=== PATIENT | male | born 1965 | race Hispanic/Latino ===

== ENCOUNTER 2017-04-20 17:35 | Inpatient (IN) | payer MEDICARE ==
--- NOTE | 2017-04-20 17:43 | ED PDOC ---
Psych Transfer Clearance - Clearance Statement Clearance Statement: Reviewed vital signs, lab results and transfer papers. Patient clinically stable for psychiatric admission.
[2017-04-20 17:53] VITALS: O2SAT 100; BMI 30.7
[2017-04-20] MEDS ORDERED: DiphenhydrAMINE 50 mg/ml Inj IM PRN (18:32)
[2017-04-20] MEDS ORDERED: Alum-Mag Hydrox-Simethicone Susp (30 mL) PO PRN (18:32)
[2017-04-20] MEDS ORDERED: Magnesium Hydroxide Susp 30 ml UD PO PRN (18:32)
[2017-04-20] MEDS ORDERED: Pneumococcal 23-Valent Vaccine IM ONE (19:22)
--- NOTE | 2017-04-21 02:11 | PCM.BM ---
<Joce Santos - Last Filed: 04/21/17 02:09> Treatment Plan Problems - Problems identified on initial assessmt Agitated/Aggressive behavior Date Initiated: 04/20/17 Time Initiated: 19:45 Assessment reference: NA Status: Active Priority: 1 High Risk Violence Date Initiated: 04/20/17 Time Initiated: 19:45 Assessment reference: NA Status: Active Priority: 2 Ineffective Impulse Control Date Initiated: 04/20/17 Time Initiated: 19:45 Assessment reference: NA Status: Active Priority: 3 Treatment assets and liabiliti Patient Assests: cooperative, self-reliant, ADL independent, negotiates basic needs Patient Liabilities: live alone, financial problems, medical problems - Milieu Protocol Maintain good personal hygiene: daily Encourage regular showers, daily Remind patient to perform daily oral care, daily Assist patient to perform ADL's Maintain personal safety: every shift Educate patient to report safety concerns to staff, every shift Monitor environment for contraband/sharps Medication safety: Monitor for expected outcome, potential side effects: every shift, Assess barriers to learning: every shift, Assess readiness for medication education: every shift <MarquesJocelyn - Last Filed: 04/25/17 17:12> Treatment assets and liabiliti Patient Assests: adapts well, cooperative, insightful, self-reliant, ADL independent, negotiates basic needs, good past tx response Patient Liabilities: live alone, financial problems, poor support system, medical problems Family Contact Family involvement: Patient does not wish Family/SO involvement Family contact: Patient declines to allow family contact at present - Outside Agency Agency 1 Care involvment: Following patient during stay, Information-sharing, Other Agency contact name: [facility] contact number: Flow Trader spoke with RADHA (Nataliia [phone]) regarding patient progress on 3NP and aftercare. Flow Trader informed Nataliia that patient is agreeable to [facility] but only if referred to [facility]. Nataliia expressed concerns regarding efficiency of the therapeutic environment provided at [place] and recommended patient be referred to [facility]. Flow Trader explained that patient is currently adamant about staying in [place]. Flow Trader notified Nataliia that patients cat is currently in his apartment unattended. Nataliia reports patients crisis plan states patients gf will care for cat if patient is hospitalized. However, patients girlfriend is currently hospitalized with [facility]. Nataliia offered to came get keys from patient, as [facility] does not keep copies of residents apartment keys. Patient reports the only copy of the gleason is currently with girlfriend. Flow Trader left voicemail notifying Nataliia that patient does not have a gleason. Flow Trader awaiting response with recommendations on how to address this issue. Agency 2 Care involvment: Following patient during stay, Information-sharing, Other Agency contact name: [facility] Agency contact number: [phone] - Goals for Treatment Patient goals for treatment: Patient to continue stabilization on 3NP through medication management and group/supportive therapy. Patient to be encouraged to attend groups regularly to promote self-awareness, compliance, and improve insight, coping skills and self-esteem. Patient to be provided with referral for appropriate level of aftercare to reduce risk of future hospitalizations and ensure safety in the community. Discharge/Continuing Care - Education Needs Education Needs: Patient Medication, Patient Coping Skills, Patient Community resources, Patient Aftercare Safety Plan - Discharge Discharge Criteria: Tolerates medication w/o severe side effects, Free of Suicidal thoughts, Free of paranoid thoughts, Normal sleep pattern, Ability to care for self, Reduction of target symptoms Discharge to:: Home, Other ([facility]) - Treatment Team Participation Was Patient/Family/SO present at Treatment Team Meeting: Yes <Johnny Vanegas - Last Filed: 04/26/17 10:57> - Diagnosis (1) OCD (obsessive compulsive disorder) Status: Chronic Interventions: PSYCHOTHERAPY PHARMACOTHERAPY 04/26/17 10:56
[2017-04-21 08:37] LABS: BASO # 0.1 K/uL (0.0-0.2); BASO % 0.7 % (0.0-2.0); EOS # 0.5 K/uL (0.0-0.7); EOS % 4.4 % (0.0-4.0); HEMATOCRIT 48.5 % (35.0-51.0); LYMPH # 2.6 K/uL (1.0-4.3); LYMPH % 22.5 % (20.0-40.0); MEAN CELL VOLUME 84.6 fl (80.0-94.0); MEAN CORPUSCULAR HEMOGLOBIN 28.6 pg (27.0-31.0); MEAN CORPUSCULAR HGB CONC 33.8 g/dL (33.0-37.0); MEAN PLATELET VOLUME 8.3 fl (7.2-11.7); MONO # 0.7 K/uL (0.0-0.8); MONO % 6.2 % (0.0-10.0); NEUT # 7.7 K/uL (1.8-7.0); NEUT % 66.2 % (50.0-75.0); NRBC % 0.1 % (0.0-0.0); RED CELL DISTRIBUTION WIDTH 14.4 % (11.5-14.5); WHITE BLOOD COUNT 11.6 K/uL (4.8-10.8)
[2017-04-21 08:50] LABS: ALB/GLOB RATIO 1.3 (1.0-2.1); ALKALINE PHOSPHATASE 143 U/L (38-126); ALT/SGPT 123 U/L (21-72); AST/SGOT 86 U/L (17-59); BILIRUBIN,TOTAL 0.6 mg/dl (0.2-1.3); BLOOD UREA NITROGEN 14 mg/dl (9-20); CALCIUM 9.1 mg/dL (8.4-10.2); CARBON DIOXIDE 26 mmol/L (22-30); CHLORIDE 106 mmol/L (98-107); CHOLESTEROL 180 mg/dL (0-199); GFR AFRICAN-AMERICAN > 60; GLUCOSE,RANDOM 98 mg/dL (75-110); POTASSIUM 4.3 MMOL/L (3.6-5.0); SODIUM 140 mmol/l (132-148); TOTAL PROTEIN 8.1 G/DL (6.3-8.2)
[2017-04-21 09:06] LABS: T4 6.03 ug/dl (5.5-11.0)
[2017-04-21 11:03] LABS: THYROID STIMULATING HORMONE 0.46 mIU/ML (0.46-4.68)
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
--- NOTE | 2017-04-21 14:25 | PCM.PSYCH ---
Initial Psychiatric Evaluation - Initial Psychiatric Evaluation Type of Admission: Voluntary Legal Status: Capacity Chief Complaint (in patient's own words): i need another medicine Patient's Reaction to Hospitalization: pt requested help History of Present Illness and Precipitating Events: pt is 51yo male with long h/o schizoaffective disorder, multiple psychiatric admissions in the past including [facility] and this facility more than five times for the past year, h/o being on clozaril, currently under [facility] team service, was admitted to the psychiatric inpatient unit for evaluation and stabilization of worsening of his psychosis, depression, worsening of OCD inability to function and possible thoughts of harming self. pt stated he has been on prolixin but now not covered with insurance, was replaced with thorazine, since then pt started decompensating denied S/H I on the unit, denied command hallucinations Current Medications: Active Medications Generic Name Dose Route Start Last Admin Trade Name Freq PRN Reason Stop Dose Admin Acetaminophen 650 mg 04/20/17 18:32 Tylenol 325mg Tab PO Q4 PRN Pain, Mild (1-3) Al Hydrox/Mg Hydrox/Simethicone 30 ml 04/20/17 18:32 Maalox Plus 30 Ml PO Q4 PRN Dyspepsia Amlodipine Besylate 10 mg 04/22/17 09:00 Norvasc PO DAILY BRIE Atorvastatin Calcium 10 mg 04/22/17 09:00 Lipitor PO DAILY BRIE Diphenhydramine HCl 50 mg 04/20/17 18:32 Benadryl IM Q6 PRN Extrapyramidal S/S Unable PO Diphenhydramine HCl 50 mg 04/20/17 18:38 04/20/17 23:43 Benadryl PO 50 mg HS PRN Administration Sleep Diphenhydramine HCl 50 mg 04/20/17 18:39 Benadryl PO Q6 PRN Eps/dystonic reaction Haloperidol 5 mg 04/20/17 18:32 Haldol PO Q4 PRN Agitation Haloperidol Lactate 5 mg 04/20/17 18:32 Haldol IM Q4 PRN Agitation, Unable to Take PO Lorazepam 2 mg 04/20/17 18:32 Ativan IM Q4 PRN Anxiety/Agitation,Unable PO Lorazepam 2 mg 04/20/17 18:37 Ativan PO Q4 PRN Anxiety Magnesium Hydroxide 30 ml 04/20/17 18:32 Milk Of Magnesia PO HS PRN Constipation Metformin HCl 1,000 mg 04/21/17 17:00 Glucophage PO BID BRIE Mirtazapine 15 mg 04/21/17 22:00 Remeron PO HS [facility] Perphenazine 2 mg 04/21/17 14:17 Perphenazine PO TID [facility] Past Psychiatric History - Past Psychiatric History Previous Treatment History: Inpatient Explanation of prior treatment: multiple inpatient admissions including [facility] History of Abuse: denied History of ETOH/Drug Use: history of alcohol use, reported abstinent for few months History of Family Illness: denied Pertinent Medical Hx (Current Medical&Sleep Prob, Allergies): Allergies Allergy/AdvReac Type Severity Reaction Status Date / Time haloperidol [From Haldol] Allergy Intermediate SWELLING Verified 04/20/17 11:11 haloperidol lactate Allergy Intermediate SWELLING Verified 04/20/17 11:11 [From Haldol] risperidone [From Risperdal] Allergy SWELLING Verified 04/20/17 11:11 Atorvastatin [Lipitor] 10 mg PO DAILY #7 tab 09/02/16 FLUoxetine [Prozac] 40 mg PO DAILY #14 cap 09/02/16 Famotidine [Pepcid] 20 mg PO HS #7 tab 09/02/16 MetFORMIN [glucoPHAGE] 1,000 mg PO BID #14 tab 09/02/16 Mirtazapine [Remeron] 15 mg PO HS #14 tab 09/02/16 amLODIPine [Norvasc] 10 mg PO DAILY #7 tab 09/02/16 clonazePAM [Klonopin] 0.5 mg PO TID #45 tab 09/02/16 chlorproMAZINE [Thorazine] 10 mg PO TID 04/20/17 Mental Status Examination - Personal Presentation Personal Presentation: Looks stated age - Affect Affect: Constricted, Depressed - Motor Activity Motor Activity: Psychomotor Agitation - Reliability in Providing Information Reliability in Providing Information: Fair - Speech Speech: Coherent - Mood Mood: Depressed, Anxious - Formal Thought Process Formal Thought Process: Hallucinations, Paranoia, Circumstantial - Hallucinations/Delusions Hallucinations: Auditory Additional comments: reported non command auditory hallucinations - Obsessions/Compulsions Obsessions: No Compulsions: No - Cognitive Functions Orientation: Person, Place Sensorium: Alert Attention/Concentration: Easily distracted Abstract Thinking: [place] Estimate of Intelligence: Below average Judgement: Imparied, as evidence by: Poor judgement, Imparied, as evidence by: Lack of insight into illness Memory: Recent intact, as evidence by: Ability to recall events of the day - Risk Risk: Diminished functioning - Strength & Assets Inventory Strength & Assets Inventory: Life experience - Limitations Additional comments: unemployed DSM 5 DX - DSM 5 DSM 5 Diagnosis: schizoaffective disorder bipolar ocd start perphenazine 2mg tid' monitor pt for psychopharmacological effects and side effect therapy CBT and supportive therapy
--- NOTE | 2017-04-22 12:59 | PCM.PYCHPN ---
Psychiatric Progress Note - Psychiatric Progress Note Patient seen today, length of contact: pt evaluated discussed with team chart reviewed Patient Chief Complaint: i still get paranoid and anxious i obsess about some thoughts Problems Identified/Issues Discussed: pt on evaluation, presents with anxious mood and and affect, reported continues to have intrusive thoughts, preffered not to share the content, pt however denied any thoughts to hurt self or others, pt reported continues to be paranoid feeling other people are after him, denied command hallucinations pt attending groups, denied side effects of medications Medical Problems: DM , HTN DSM 5 Symptoms Update: schizoaffective disorder Obsessive compulsive disorder Medication Change: Yes (start fluvoxamine and klonopin) Medical Record Reviewed: Yes Mental Status Examination - Cognitive Function Orientation: Person, Place Attention: WNL Concentration: WNL Association: WNL Fund of Knowledge: Poor Decription of patient's judgement and insights: fair insight and judgement - Mood Mood: Depressed, Anxious - Affect Affect: Constricted, Depressed - Speech Speech: Appropriate - Formal Thought Process Formal Thought Process: Paranoia, Circumstantial - Suicidal Ideation Suicidal Ideation: No - Homicidal Ideation Homicidal Ideation: No Goal/Treatment Plan - Goal/Treatment Plan Need for Continued Stay: Remain at risks for inpatient hospitalization, Discharge may exacerbated symptoms Progress Toward Problem(s) and Goals/Treatment Plan: continue with trilofan 2mg tid with plan to uptitrate gradually start fluvoxamine 50 mg daily with plan to uptitrate to 100mg for OCD klonopin 0.25 mg BID remeron 15 mg qhs group and supportive therapy
[2017-04-22 16:43] VITALS: RESP 18
--- NOTE | 2017-04-23 18:22 | PCM.PYCHPN ---
Psychiatric Progress Note - Psychiatric Progress Note Patient seen today, length of contact: pt evaluated discussed with team chart reviewed Patient Chief Complaint: i AM A LITLE BETTER , LESS PARANOID Problems Identified/Issues Discussed: pt on evaluation, presents to be less anxious and less paranoid, more interactive and less isolative , reported continues to have intrusive thoughts, preffered not to share the content, pt however denied any thoughts to hurt self or others, denied command hallucinations denied S/H I no reported side effects of medications Medical Problems: DM , HTN Medication Change: Yes (increase fluvoxamine ) Medical Record Reviewed: Yes Mental Status Examination - Cognitive Function Orientation: Person, Place Attention: WNL Concentration: WNL Association: WNL Fund of Knowledge: Poor Decription of patient's judgement and insights: fair insight and judgement - Mood Mood: Depressed, Anxious - Affect Affect: Constricted, Depressed - Speech Speech: Appropriate - Formal Thought Process Formal Thought Process: Circumstantial Psychotic Thoughts and Behaviors: pt reported feeling less paranoid denied perceptual disturbances - Suicidal Ideation Suicidal Ideation: No - Homicidal Ideation Homicidal Ideation: No Goal/Treatment Plan - Goal/Treatment Plan Need for Continued Stay: Remain at risks for inpatient hospitalization, Discharge may exacerbated symptoms Progress Toward Problem(s) and Goals/Treatment Plan: continue with trilofan 2mg tid with plan to uptitrate gradually increase fluvoxamine 50 mg BID 100mg for OCD klonopin 0.25 mg BID remeron 15 mg qhs group and supportive therapy
--- NOTE | 2017-04-24 17:59 | PCM.PYCHPN ---
Psychiatric Progress Note - Psychiatric Progress Note Patient seen today, length of contact: pt evaluated discussed with team chart reviewed Patient Chief Complaint: I am less paranoid but I still have intrusive thoughts Problems Identified/Issues Discussed: pt on evaluation, presents to be less anxious and less paranoid, more interactive and less isolative , reported continues to have intrusive thoughts, denied command hallucinations denied S/H I no reported side effects of medications Medical Problems: DM , HTN DSM 5 Symptoms Update: schizoaffective disorder ocd Medication Change: No (increase fluvoxamine ) Medical Record Reviewed: Yes Mental Status Examination - Cognitive Function Orientation: Person, Place Attention: WNL Concentration: WNL Association: WNL Fund of Knowledge: Poor Decription of patient's judgement and insights: fair insight and judgement - Mood Mood: Depressed, Anxious - Affect Affect: Constricted, Depressed - Speech Speech: Appropriate - Formal Thought Process Formal Thought Process: Circumstantial Psychotic Thoughts and Behaviors: pt reported feeling less paranoid denied perceptual disturbances - Suicidal Ideation Suicidal Ideation: No - Homicidal Ideation Homicidal Ideation: No Goal/Treatment Plan - Goal/Treatment Plan Need for Continued Stay: Remain at risks for inpatient hospitalization, Discharge may exacerbated symptoms Progress Toward Problem(s) and Goals/Treatment Plan: continue with trilofan 2mg tid with plan to uptitrate gradually continue fluvoxamine 50 mg BID for OCD klonopin 0.25 mg BID remeron 15 mg qhs group and supportive therapy
--- NOTE | 2017-04-25 14:48 | PCM.PYCHPN ---
Psychiatric Progress Note - Psychiatric Progress Note Patient seen today, length of contact: pt evaluated discussed with team chart reviewed Patient Chief Complaint: I am feeling better today Problems Identified/Issues Discussed: pt on evaluation, presents to be less anxious and less paranoid, more interactive and less isolative , reported continues to have intrusive thoughts, denied command hallucinations denied S/H I no reported side effects of medications Medical Problems: DM , HTN Medication Change: No (increase fluvoxamine ) Medical Record Reviewed: Yes Mental Status Examination - Cognitive Function Orientation: Person, Place Attention: WNL Concentration: WNL Association: WNL Fund of Knowledge: Poor Decription of patient's judgement and insights: fair insight and judgement - Mood Mood: Depressed, Anxious - Affect Affect: Constricted, Depressed - Speech Speech: Appropriate - Formal Thought Process Formal Thought Process: Circumstantial Psychotic Thoughts and Behaviors: pt reported feeling less paranoid denied perceptual disturbances - Suicidal Ideation Suicidal Ideation: No - Homicidal Ideation Homicidal Ideation: No Goal/Treatment Plan - Goal/Treatment Plan Need for Continued Stay: Remain at risks for inpatient hospitalization, Discharge may exacerbated symptoms Progress Toward Problem(s) and Goals/Treatment Plan: continue with trilofan 2mg tid with plan to uptitrate gradually increase fluvoxamine to 150 mg daily for OCD klonopin 0.25 mg BID remeron 15 mg qhs group and supportive therapy
--- NOTE | 2017-04-26 11:02 | PCM.PYCHPN ---
Psychiatric Progress Note - Psychiatric Progress Note Patient seen today, length of contact: pt evaluated discussed with team chart reviewed Patient Chief Complaint: I am feeling better today Problems Identified/Issues Discussed: pt on evaluation, presents to be less anxious and less paranoid, more interactive and less isolative , reported continues to have intrusive thoughts, denied command hallucinations,pt reported depressed at times due to loneliness , discussed the option of day program on discharge pt agreed denied S/H I no reported side effects of medications Medical Problems: DM , HTN DSM 5 Symptoms Update: schizoaffective disorder obsessive compulsive disorder Medication Change: No Medical Record Reviewed: Yes Mental Status Examination - Cognitive Function Orientation: Person, Place Attention: WNL Concentration: WNL Association: WNL Fund of Knowledge: Poor Decription of patient's judgement and insights: fair insight and judgement - Mood Mood: Depressed, Anxious - Affect Affect: Constricted, Depressed - Speech Speech: Appropriate - Formal Thought Process Formal Thought Process: Circumstantial Psychotic Thoughts and Behaviors: pt reported feeling less paranoid denied perceptual disturbances - Suicidal Ideation Suicidal Ideation: No - Homicidal Ideation Homicidal Ideation: No Goal/Treatment Plan - Goal/Treatment Plan Need for Continued Stay: Remain at risks for inpatient hospitalization, Discharge may exacerbated symptoms Progress Toward Problem(s) and Goals/Treatment Plan: continue with trilofan 2mg tid with plan to uptitrate gradually continue fluvoxamine 150 mg daily for OCD klonopin 0.25 mg BID remeron 15 mg qhs group and supportive therapy
--- NOTE | 2017-04-27 11:25 | PCM.PYCHPN ---
Psychiatric Progress Note - Psychiatric Progress Note Patient seen today, length of contact: pt evaluated discussed with team chart reviewed Patient Chief Complaint: I am feeling better today with my current medications Problems Identified/Issues Discussed: pt on evaluation, presents to be less anxious and less paranoid, more interactive and less isolative , reported clearing off of the intrusive thoughts, denied command hallucinations,pt reported depressed at times due to loneliness, discussed the option of day program on discharge pt agreed denied S/H I no reported side effects of medications Medical Problems: DM , HTN Medication Change: No Medical Record Reviewed: Yes Mental Status Examination - Cognitive Function Orientation: Person, Place Attention: WNL Concentration: WNL Association: WNL Fund of Knowledge: Poor Decription of patient's judgement and insights: fair insight and judgement - Mood Mood: Neutral - Affect Affect: Constricted - Speech Speech: Appropriate - Formal Thought Process Formal Thought Process: Circumstantial Psychotic Thoughts and Behaviors: pt reported feeling less paranoid denied perceptual disturbances - Suicidal Ideation Suicidal Ideation: No - Homicidal Ideation Homicidal Ideation: No Goal/Treatment Plan - Goal/Treatment Plan Need for Continued Stay: Remain at risks for inpatient hospitalization, Discharge may exacerbated symptoms Progress Toward Problem(s) and Goals/Treatment Plan: continue with trilofan 2mg tid y continue fluvoxamine 150 mg daily for OCD klonopin 0.25 mg BID remeron 15 mg qhs group and supportive therapy
--- NOTE | 2017-04-28 13:06 | PCM.PYCHPN ---
Psychiatric Progress Note - Psychiatric Progress Note Patient seen today, length of contact: pt evaluated discussed with team chart reviewed Patient Chief Complaint: I am doing fine on my current medications Problems Identified/Issues Discussed: pt on evaluation, calmer, less anxious , cooperative,attending groups reported clearing off of the intrusive thoughts, denied command hallucinations, , discussed the option of day program on discharge pt agreed denied S/H I no reported side effects of medications Medical Problems: DM , HTN DSM 5 Symptoms Update: schizophrenia obsessive compulsive disorder Medication Change: No Medical Record Reviewed: Yes Mental Status Examination - Cognitive Function Orientation: Person, Place Attention: WNL Concentration: WNL Association: WNL Fund of Knowledge: Poor Decription of patient's judgement and insights: fair insight and judgement - Mood Mood: Neutral - Affect Affect: Constricted - Speech Speech: Appropriate - Formal Thought Process Formal Thought Process: Circumstantial Psychotic Thoughts and Behaviors: pt reported feeling less paranoid denied perceptual disturbances - Suicidal Ideation Suicidal Ideation: No - Homicidal Ideation Homicidal Ideation: No Goal/Treatment Plan - Goal/Treatment Plan Need for Continued Stay: Remain at risks for inpatient hospitalization, Discharge may exacerbated symptoms Progress Toward Problem(s) and Goals/Treatment Plan: continue with trilofan 2mg tid continue fluvoxamine 150 mg daily for OCD klonopin 0.25 mg BID remeron 15 mg qhs group and supportive therapy
--- NOTE | 2017-04-29 14:14 | PCM.PYCHPN ---
Psychiatric Progress Note - Psychiatric Progress Note Patient seen today, length of contact: pt evaluated discussed with team chart reviewed Patient Chief Complaint: I am doing fine today Problems Identified/Issues Discussed: pt on evaluation, calmer, less anxious , cooperative,attending groups reported clearing off of the intrusive thoughts, denied command hallucinations, , no reported changes in sleep or appetite, denied S/H I no reported side effects of medications Medical Problems: DM , HTN DSM 5 Symptoms Update: schizoaffective disorder ocd Medication Change: No Medical Record Reviewed: Yes Mental Status Examination - Cognitive Function Orientation: Person, Place Attention: WNL Concentration: WNL Association: WNL Fund of Knowledge: Poor Decription of patient's judgement and insights: fair insight and judgement - Mood Mood: Neutral - Affect Affect: Constricted - Speech Speech: Appropriate - Formal Thought Process Formal Thought Process: Circumstantial Psychotic Thoughts and Behaviors: pt reported feeling less paranoid denied perceptual disturbances - Suicidal Ideation Suicidal Ideation: No - Homicidal Ideation Homicidal Ideation: No Goal/Treatment Plan - Goal/Treatment Plan Need for Continued Stay: Remain at risks for inpatient hospitalization, Discharge may exacerbated symptoms Progress Toward Problem(s) and Goals/Treatment Plan: continue with trilofan 2mg tid continue fluvoxamine 150 mg daily for OCD klonopin 0.25 mg BID remeron 15 mg qhs group and supportive therapy Estimated Date of D/C: 04/30/17
[2017-04-29 17:42] VITALS: TEMP 97.5
[2017-04-30 08:48] VITALS: BP 140/71; PULSE 89
[2017-04-30] MEDS ORDERED: Influenza Vaccine 18yr & older 0.5 ML/45 MCG SYR IM ONE (09:33)
--- NOTE | 2017-04-30 13:17 | PCM.PYCHDC ---
Mental Status Examination - Mental Status Examination Orientation: Person, Place, Situation Memory: Intact Mood: Neutral Affect: Broad Speech: Appropriate Attention: WNL Concentration: WNL Association: WNL Fund of Knowledge: WNL Formal Thought Process: No Impairment Description of patient's judgement and insight: fair insight and judgement Psychotic Thoughts and Behaviors: pt on discharge denied perceptual disturbances denied any psychotic symptoms, non elicited Suicidal Ideation: No Current Homicidal Ideation?: No Discharge Summary - Discharge Note Reason for Hospitalization: pt is 51yo male with long h/o schizoaffective disorder, multiple psychiatric admissions in the past including [facility] and this facility more than five times for the past year, h/o being on clozaril, currently under [facility] team service, was admitted to the psychiatric inpatient unit for evaluation and stabilization of worsening of his psychosis, depression, worsening of OCD inability to function and possible thoughts of harming self. pt stated he has been on prolixin but now not covered with insurance, was replaced with thorazine, since then pt started decompensating denied S/H I on the unit, denied command hallucinations Laboratory Data: Abnormal Lab Results 04/30/17 06:09 POC Glucose (mg/dL) 71 Consultations:: List each consultation separately and include: 1. Reason for request. 2. Findings. 3. Follow-up Summary of Hospital Course include:: 1. Description of specific treatment plan utilized for patients during their course of treatmen. 2. Summarize the time- course for resolution of acute symptoms and/or regressed behaviors. 3. Describe issues identified and worked on during hospitalization. 4. Describe medication utilized. 5. Describe medical problems identified and treated. 6. Reassessment of suicide risk Summary of Hospital Course: pt on admission was titrated on trilofan 2mg , this was uptitrated to 2mg tid pt was also started on luvox for OCD was uptitrated to 150 mg daily pt attended groups, no reported side effects of medications on discharge mental status was stable, pt denied any suicidal or homicidal ideations, denied perceptual disturbances pt was referred to [facility] hospital program - Diagnosis (1) OCD (obsessive compulsive disorder) Current Visit: No Status: Chronic - Final Diagnosis (DSM 5) Condition upon Discharge: STABLE Disposition: HOME/ ROUTINE Follow-up Treatment Plan: continue with trilofan 2mg tid continue fluvoxamine 150 mg daily for OCD klonopin 0.25 mg BID remeron 15 mg qhs group and supportive therapy Prescriptions/Medication Reconciliation: clonazePAM [Klonopin] 0.25 mg PO BID 3 Days #30 tab fluvoxaMINE [Luvox] 100 mg PO HS 30 Days #30 tab fluvoxaMINE [Luvox] 50 mg PO DAILY 30 Days #30 tab Mirtazapine [Remeron] 15 mg PO HS 30 Days #30 tab Perphenazine 2 mg PO TID 30 Days #90 tab - Antipsychotic Medications Pt discharged on 2 or more routine antipsychotic medications: No
== END 2017-04-30 13:25 | disposition home or self-care (01) | DRG 882 ==
LOC: H.ER 17:35 → H.PSYCH 17:42
PROVIDERS: ADMIT Psychiatry & Neurology Psychiatry; ATTEND Psychiatry & Neurology Psychiatry
PROC: GZHZZZZ Group Psychotherapy (ICD-10-PCS; principal; 2017-04-21)
PROC: GZ51ZZZ Individual Psychotherapy, Behavioral (ICD-10-PCS; 2017-04-21)
PROC: 3E0234Z Introduction of Serum, Toxoid and Vaccine into Muscle, Percutaneous Approach (ICD-10-PCS; 2017-04-30)
DX: F42.9 Obsessive-compulsive disorder, unspecified (principal); F20.0 Paranoid schizophrenia; E11.9 Type 2 diabetes mellitus without complications; E78.00 Pure hypercholesterolemia, unspecified; E78.5 Hyperlipidemia, unspecified; F25.9 Schizoaffective disorder, unspecified; F32.9 Major depressive disorder, single episode, unspecified; I10 Essential (primary) hypertension; K21.9 Gastro-esophageal reflux disease without esophagitis; F41.9 Anxiety disorder, unspecified; M19.90 Unspecified osteoarthritis, unspecified site; Z23 Encounter for immunization